=== PATIENT | female | born 1990 | race Caucasian/White ===

== ENCOUNTER 2022-07-06 23:01 | Emergency (ER) | payer OTHER ==
[2022-07-06 23:24] VITALS: BP 117/78; PULSE 80; RESP 18; TEMP 97.6; BMI 36.5
[2022-07-07] MEDS ORDERED: ACETAMINOPHEN 500 MG TABLET (FP) PO ONE (00:27)
[2022-07-07] MEDS ORDERED: ACETAMINOPHEN 325 MG TABLET (FP) ONE (00:38)
== END 2022-07-07 01:36 | disposition home or self-care (01) ==
LOC: JER 23:01
DX: M25.571 Pain in right ankle and joints of right foot (principal)
CPT/HCPCS: 73610-TC-RT-FY; 73630-TC-RT-FY; 99283-25